=== PATIENT | female | born 1995 | race Native Hawaiian/Other Pacific Islander ===

== ENCOUNTER 2018-05-03 16:39 | Outpatient (CLI) | payer OTHER | END 2018-05-03 22:45 | disposition home or self-care (01) | LOC: RAD 16:39 | DX: M25.549 Pain in joints of unspecified hand (principal) ==

== ENCOUNTER 2019-10-31 03:35 | Emergency (ER) | payer OTHER ==
[~2019-10-31] VITALS: Ht 157.5 cm; Wt 87.1 kg
[2019-10-31 04:26] LABS: PLATELET COUNT 232 K/uL (152-353)
[2019-10-31 04:35] LABS: POTASSIUM 3.8 mmol/L (3.6-5.2)
[2019-10-31 05:00] VITALS: BP 106/65; TEMP 98.1
== END 2019-10-31 05:00 | disposition home or self-care (01) ==
LOC: ED 03:35
PROVIDERS: Family Medicine
DX: N39.0 Urinary tract infection, site not specified (principal); Z79.2 Long term (current) use of antibiotics
CPT/HCPCS: 36415; 80053; 81000; 85027; 87086; 87088; 96372; 99283; J0696

== ENCOUNTER 2019-10-31 22:41 | Inpatient (IN) | payer OTHER ==
[~2019-10-31] VITALS: Ht 160 cm; Wt 89.5 kg
[2019-10-31 23:01] VITALS: BP 105/57; TEMP 100.7
[2019-10-31 23:46] LABS: PLATELET COUNT 262 K/uL (152-353)
[2019-10-31 23:51] LABS: POTASSIUM 3.7 mmol/L (3.6-5.2)
[2019-11-01 01:07] VITALS: BP 112/58; TEMP 100.1; Ht 160 cm; Wt 89.5 kg
[2019-11-01 04:31] LABS: PLATELET COUNT 219 K/uL (152-353)
[2019-11-01 04:42] LABS: POTASSIUM 3.6 mmol/L (3.6-5.2)
[2019-11-01 08:00] VITALS: BP 105/50; TEMP 98.8
--- NOTE | 2019-11-01 09:14 | NUR ---
PATIENT AWAKENED FOR AM MEDS. PATIENT REQUESTING PAIN MEDS. TYLENOL OFFERED PT STATES SHE NEEDS SOMETHING "STRONGER."
[2019-11-01 12:13] VITALS: BP 119/72; TEMP 98.4
--- NOTE | 2019-11-01 13:35 | NUR ---
PT C/O NAUSEA AFTER ATTEMPTING TO EAT LUNCH. ZOFRAN 4 MG IV GIVEN.
[2019-11-01 16:03] VITALS: BP 118/58; TEMP 98.5
--- NOTE | 2019-11-01 18:44 | NUR ---
1730 MORPHINE 2 MG SIVP GIVEN FOR [place] AND LOW BACK PAIN. RATES PRS 05/04
[2019-11-01 19:52] VITALS: BP 111/57; TEMP 99.8
[2019-11-01 23:46] VITALS: BP 121/66; TEMP 99.6
[2019-11-02 04:00] VITALS: BP 108/58; TEMP 98.8
[2019-11-02 05:01] LABS: PLATELET COUNT 233 K/uL (152-353)
[2019-11-02 05:07] LABS: POTASSIUM 3.6 mmol/L (3.6-5.2)
[2019-11-02 08:00] VITALS: BP 105/66; TEMP 98.2
--- NOTE | 2019-11-02 10:00 | NUR ---
Dr. Bustillo at bedside assessing Patient.
[2019-11-02 12:00] VITALS: BP 110/70; TEMP 98.2
[2019-11-02 16:19] VITALS: BP 115/70; TEMP 98.1
--- NOTE | 2019-11-02 17:47 | NUR ---
Patient c/o of difficulty breathing stating "feels like a ball in the center of my chest". Notified Dr. Bustillo of same. No new orders noted at this time.
[2019-11-02 20:00] VITALS: BP 115/62; TEMP 101
[2019-11-02 23:43] VITALS: BP 101/60; TEMP 98.8
--- NOTE | 2019-11-03 04:08 | NUR ---
PT REPORTED FEELING TIGHT IN HER CHEST AND EPISODES WHERE SHE IS SHORT OF BREATH. PULSE OX WAS CHECKED AND IT REGISTERED AT 80 PERCENT. NC AT 4L APPLIED PER RESP THERAPY. PULSE OX IS NOW 87 PERCENT. PT STATES THAT SHE IS FEELING MUCH BETTER WITH OXYGEN. MONITORING PT.
[2019-11-03 08:00] VITALS: BP 119/72; TEMP 98.7
[2019-11-03 12:00] VITALS: BP 119/69; TEMP 98.2
[2019-11-03 16:00] VITALS: BP 114/72; TEMP 98.7
== END 2019-11-03 19:39 | disposition home or self-care (01) | DRG 689 ==
LOC: ED 22:41 → MED/SURG 11-01 00:25
PROVIDERS: Internal Medicine Endocrinology, Diabetes & Metabolism; ADMIT Family Medicine
DX: N10 Acute pyelonephritis (principal); A41.89 Other specified sepsis; D50.9 Iron deficiency anemia, unspecified; E03.8 Other specified hypothyroidism
CPT/HCPCS: 36415; 80048; 80053; 81000; 84702; 85027; 94760; 96360; 99284; J2270; J2405; J2543; J3490

== ENCOUNTER 2020-06-19 13:04 | Outpatient (CLI) | payer OTHER | END 2020-06-19 23:56 | disposition home or self-care (01) | LOC: US 13:04 | PROVIDERS: ATTEND Physician Assistant | DX: R53.83 Other fatigue (principal); E03.9 Hypothyroidism, unspecified ==

== ENCOUNTER 2021-03-11 13:52 | Outpatient (CLI) | payer OTHER | END 2021-03-11 21:26 | disposition home or self-care (01) | LOC: US 13:52 | PROVIDERS: ATTEND Physician Assistant | DX: M25.531 Pain in right wrist (principal) ==

== ENCOUNTER 2021-06-17 12:20 | Emergency (ER) | payer OTHER ==
[~2021-06-17] VITALS: Ht 157.5 cm; Wt 91.6 kg
[2021-06-17 12:25] VITALS: TEMP 97.2
[2021-06-17 13:20] LABS: PLATELET COUNT 350 K/uL (152-353)
[2021-06-17 13:28] LABS: POTASSIUM 3.7 mmol/L (3.6-5.2); SODIUM 136 mmol/L (136-145)
[2021-06-17 14:00] VITALS: BP 105/69
== END 2021-06-17 14:57 | disposition home or self-care (01) ==
LOC: ED 12:20
PROVIDERS: Emergency Medicine Emergency Medical Services
DX: J20.9 Acute bronchitis, unspecified (principal)
CPT/HCPCS: 36415; 36600; 80053; 81025; 82805; 83605; 83880; 84484; 85027; 85379; 87040; 93005; 94664; 96360; 96365; 96375; 99284; J2543; J2930

== ENCOUNTER 2022-07-09 16:22 | Outpatient (CLI) | payer OTHER | END 2022-07-09 19:06 | disposition home or self-care (01) | LOC: LABW 16:22 | PROVIDERS: ATTEND Internal Medicine Endocrinology, Diabetes & Metabolism | DX: E03.8 Other specified hypothyroidism (principal) | CPT/HCPCS: 36415; 83516; 84439; 84443; 84480; 86376 ==